=== PATIENT | female | born 1960 | race Caucasian/White ===

== ENCOUNTER 2017-06-22 01:11 | Observation (INO) | payer OTHER ==
[2017-06-22] VITALS (12 sets, daily range): BP systolic 103–148; BP diastolic 59–76; Ht 170.2 cm; Wt 61.2 kg
[~2017-06-22] VITALS: Ht 170.2 cm; Wt 61.2 kg
--- NOTE | ~2017-06-22 | DS ---
PATIENT:ATIF HEREDIA :60 MEDICAL RECORD: [id number] DISCHARGE SUMMARY ADMISSION DATE: 06/22/17 DISCHARGE DATE: PREOPERATIVE DIAGNOSIS: Acute appendicitis with localized peritonitis. SECONDARY DIAGNOSIS: Postoperative ileus. PROCEDURE: Laparoscopic appendectomy. The patient underwent the above operative procedure. She had an ileus postoperatively. Bowel function returned. Her diet was advanced. She is being dismissed home on Dilaudid for pain. TRANSINT:[id number] Voice Confirmation ID: [id number] DOCUMENT ID: [id number] PENNY CLARK MD CC: [id number] DICTATION DATE: 06/25/17 1432 NETWORK SYSTEMS CONSULTANT: 06/25/17 1455 ADM IN [place] [id number] [place] [address]
[2017-06-22 02:22] LABS: BASOPHILS 0.2 % (0-2); EOSINOPHILS 1.8 % (0-7); HEMATOCRIT 39.6 % (36.0-48.0); HEMOGLOBIN 13.6 g/dL (12-16); IMMATURE GRANULOCYTES 0.2 % (0-5); LYMPHOCYTES 17.3 % (15-50); MCH 32.1 pg (26.0-34.0); MCHC 34.3 g/dL (31.0-37.0); MCV 93.4 fL (80.0-100.0); MEAN PLATELET VOLUME 9.9 fL (7.4-10.4); MONOCYTES 6.5 % (2-11); PLATELET COUNT 226 10x3/uL (130-400); RBC 4.24 10x6/uL (4.00-5.40); WBC 9.6 10x3/uL (4.8-10.8)
[2017-06-22 02:34] LABS: ALBUMIN 3.8 g/dL (3.4-5.0); ALKALINE PHOSPHATASE 84 U/L (46-116); ALT (SGPT) 16 U/L (10-68); AMYLASE - SERUM 24 U/L (25-115); BILIRUBIN - TOTAL 0.41 mg/dL (0.2-1.3); CALC OSMOLALITY 281 mosm/kg (275-300); CALCIUM 8.8 mg/dL (8.5-10.1); CARBON DIOXIDE 29.5 mmol/L (21.0-32.0); CHLORIDE - SERUM 107 mmol/L (98-107); CREATININE - SERUM 0.7 mg/dL (0.6-1.3); GLUCOSE 96 mg/dL (74-106); LIPASE 120 U/L (73-393); POTASSIUM - SERUM 3.8 mmol/L (3.5-5.1); PROTEIN - SERUM 7.2 g/dL (6.4-8.2); SODIUM 141 mmol/L (136-145); UREA NITROGEN 16 mg/dL (7-18); eGFR NON AFRICAN AMERICAN > 90 mL/min (90-120)
--- NOTE | 2017-06-22 02:36 | NUR ---
still waiting for LAB results to do CT
[2017-06-22 02:40] LABS: APPEARANCE CLEAR (CLEAR); BILIRUBIN NEGATIVE (NEGATIVE); COLOR YELLOW (YELLOW); GLUCOSE NEGATIVE (NEGATIVE); KETONE NEGATIVE (NEGATIVE); LEUKOCYTE ESTERASE NEGATIVE (NEGATIVE); NITRITE NEGATIVE (NEGATIVE); PROTEIN TRACE mg/dL (NEGATIVE); SPECIFIC GRAVITY 1.005 (1.005-1.020); UROBILINOGEN NORMAL (NORMAL)
[2017-06-22 03:55] LABS: APTT 31.7 SECONDS (22.8-39.4); INR 0.95 (0.85-1.17); PROTIME 12.6 SECONDS (11.6-15.0)
[2017-06-22] MEDS ORDERED: MAG-OX 400 MG400 MG PO (06:28)
[2017-06-22] MEDS ORDERED: ADVIL200 MG PO (06:29)
--- NOTE | 2017-06-22 08:00 | NUR ---
ADMISSION ASSESSMENT COMPLETED. IV TO R AC PATENT. NS INFUSING AT 125 CC/HR VIA PUMP. NPO FOR SURGERY TODAY. COMPLAINING OF SORENESS BUT NOT PAIN AT THIS TIME.
--- NOTE | 2017-06-22 10:15 | NUR ---
COMPLAINING OF PAIN TO RLQ. BIOCHEMISTRY SPECIALIST DILAUDID 0.2-10-4 SETUP FOR PAIN CONTROL.
--- NOTE | 2017-06-22 11:37 | NUR ---
SCD'S IN USE TO BILAT LEGS.
--- NOTE | 2017-06-22 15:00 | NUR ---
NO CHANGES NOTED AT PRESENT.
--- NOTE | 2017-06-22 18:31 | NUR ---
CONTINUES AWAITING SURGERY TODAY. FAMILY AT BEDSIDE.
--- NOTE | 2017-06-22 20:00 | NUR ---
PATIENT IN SURGERY AT THIS TIME.
--- NOTE | 2017-06-22 21:20 | NUR ---
REC'D BACK TO ROOM 2220 FROM PACU POST OP LAP APPY. MONITORING VS. FAMILY MEMBERS HERE. O2 SAT SHOWING 92-93% ON ROOM AIR PLACED ON O2 2L/M PER NC. ENCOURAGED TO COUGH AND DEEP BREATH.
--- NOTE | 2017-06-22 22:00 | NUR ---
EYES CLOSED RESPIRATIONS WITH EASE AND UNLABORED. IV PATENT RT AC NS AT 125CC'S/HR. SITE CLEAR.
[2017-06-23] VITALS (7 sets, daily range): BP systolic 107–138; BP diastolic 45–68
--- NOTE | 2017-06-23 | NUR ---
PT MORE AWAKE NOW TAKING ICE CHIPS PO. C/O INCISIONAL PAIN SET UP HER DILAUDID PILE DRIVING NOZZLEMAN OF 0.2MG Q10MIN WITH 4MG Q4H L/O. LAP SITES X4 TO ABDOMEN C/D/I. SPOUSE AT BEDSIDE.
--- NOTE | 2017-06-23 01:48 | NUR ---
RESTING QUIETLY DENIES NEEDS.
--- NOTE | 2017-06-23 07:30 | NUR ---
RECIEVED PT DURING WALKING ROUNDS. PT RESTING IN BED WITH COMPLAINTS OF A 3 ON A SCALE OF1-10. SHOE LASTER IN USE. ASSESSMENT DONE PER FLOWSHEET. BED IN LOW POSITION AND CALL LIGHT WITHIN REACH. WILL CONTINUE TO MONITOR.
--- NOTE | 2017-06-23 14:17 | NUR ---
Patient Name: ATIF HEREDIA Admission Status: ER Accout number: [id number] Admission Date: 06-22-2017 : 1960 Admission Diagnosis: Attending: MICHELE TANNER Current LOS: 1 Anticipated DC Date: Planned Disposition: Home Primary Insurance: [facility] Discharge Planning Comments: CM met with patient and ( Reg) to assess discharge planning needs. 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 She states that her will be the one to drive her home at discharge. Patient does not use any HH or DME. She has 4 steps to enter in her home. CM will continue to follow and assist with discharge planning needs PCP: [facility] ([facility] [phone]) Functional Skills Tutor: Deisy Noguera * Is the patient Alert and Oriented? Yes 0 * How many steps to enter\exit or inside your home? 4 0 * PCP Reece in [place] 0 * Pharmacy [facility] 0 * Preadmission Environment Home with Family 0 * ADLs Independent 0 * Equipment None 0 * List name and contact numbers for known caregivers / representatives who currently or will assist patient after discharge: Reg () [phone] * Community resources currently utilized None 0 * Additional services required to return to the preadmission environment? No 0 * Can the patient safely return to the preadmission environment? Yes 0 * Has this patient been hospitalized within the prior 30 days at any hospital? No 0 Grand Total: 0
--- NOTE | 2017-06-23 20:00 | NUR ---
ASSESSMENT PER FLOWSHEET. LAP SITES X4 TO ABDOMEN C/D/I. SPOUSE AT BEDSIDE DAUGHTER HERE TO VISIT. IV PATENT RT FOREARM SALINE LOCK. PATIENT IS EATING AND DRINKING WELL. SR UP X2 CALL LIGHT WITHIN REACH.
--- NOTE | 2017-06-23 20:15 | NUR ---
DR. CLARK VISITED PATIENT.
--- NOTE | 2017-06-23 21:43 | NUR ---
C/O INCISIONAL PAIN RATES PAIN LEVEL #5-6. PERCOCET 5 TAB ONE PO GIVEN FOR PAIN CONTROL.
--- NOTE | 2017-06-23 22:15 | NUR ---
UP AD ALBERTO IN HALLWAY.
--- NOTE | 2017-06-24 | NUR ---
RESTING IN BED DENIES NEEDS.
--- NOTE | 2017-06-24 01:48 | NUR ---
C/O INCISIONAL PAIN. PERCOCET TAB ONE PO GIVEN FOR PAIN CONTROL.
[2017-06-24 04:00] VITALS: BP 116/71
--- NOTE | 2017-06-24 04:15 | NUR ---
MEDS GIVEN PER MAR.
--- NOTE | 2017-06-24 06:08 | NUR ---
REQUESTING PAIN MED FOR PAIN INCISIONAL AREA RATES PAIN LEVEL #6. PERCOCET TAB ONE PO GIVEN FOR PAIN CONTROL.
--- NOTE | 2017-06-24 07:30 | NUR ---
RECIEVED PT DURING WALKING ROUNDS, PT RESTING IN BED WITH COMPLAINTS OF PAIN OF A 5 ON A SCALE OF 1-10. NO MEDICATION TO BE GIVEN AT THIS TIME. ZOFRAN GIVEN FOR NAUSEA. ASSESSMENT DONE PER FLOWSHEET. BED IN LOW POSITION AND CALL LIGHT WITHIN REACH. WILL CONTINUE TO MONITOR.
[2017-06-24 09:46] VITALS: BP 134/68
[2017-06-24 12:33] VITALS: BP 138/80
[2017-06-24 16:13] VITALS: BP 140/77
[2017-06-24 20:00] VITALS: BP 142/72
[2017-06-25 00:49] VITALS: BP 119/59
[2017-06-25 04:00] VITALS: BP 122/72
--- NOTE | 2017-06-25 07:45 | NUR ---
PT ASSESSMENT COMPLETE AWAKE AND ALERT AMBULATING ON UNIT WITH SPOUSE AT SIDE. PT HAVING LOOSE STOOLS NO DISTRESS NOTED COMPLAINS OF CONSTIPATION IS DAY 3 POD OF LAP APPY.
[2017-06-25 08:06] VITALS: BP 125/68
[2017-06-25] MEDS ORDERED: PERCOCET 5-3251 TAB PO (08:31)
[2017-06-25] MEDS ORDERED: MILK OF MAGNESI30 ML PO (08:32)
[2017-06-25] MEDS ORDERED: MIRALAX17 GM PO (08:32)
[2017-06-25 12:07] VITALS: BP 133/75
--- NOTE | 2017-06-25 13:00 | NUR ---
PT DISCHARGED PER ORDER WAS GIVEN BISCODYL 20 MG SUPPOSITORY ROBBIE AND HAD LITTLE RESULTS LEFT IN WHEELCHAIR WITH SPOUSE AT [facility] ATTENDED BY VOULENTEER STAFF PT SIGNED DICHARGE EXPRESSED UNDERSTANDING OF FOLLOW UP APPTS AND DISCHARGE INSTRUCTIONS PT ALSO AWARE OF LIFTING LIMITATIONS AND ACTIVITES TOLERATED. NO IV IN PT REFUSED RESITE YESTERDAY. PT LEFT WITH ALL PERSONAL BELONGINGS.
--- NOTE | 2017-06-25 15:38 | NUR ---
AMBULATING IN HALLWAY AT THIS TIME. RESPIRATIONS EVEN AND NON LABORED. DENIES NEEDS AT THIS TIME. WILL CONTINUE WITH PLAN OF CARE.
== END 2017-06-25 14:57 | disposition home or self-care (01) ==
LOC: D.ER 01:11 → D.MS 05:29 → OBSVTIME 05:29 → D.MS 06-25 14:57
PROVIDERS: Family Medicine; ADMIT Surgery
DX: K35.3 Acute appendicitis with localized peritonitis (principal); K56.7 Ileus, unspecified; K21.9 Gastro-esophageal reflux disease without esophagitis; F41.9 Anxiety disorder, unspecified; F17.200 Nicotine dependence, unspecified, uncomplicated